=== PATIENT | male | born 1980 | race Caucasian/White ===

== ENCOUNTER 2022-03-18 18:44 | Emergency (ER) | payer OTHER ==
[~2022-03-18] VITALS: Ht 172.7 cm; Wt 74.8 kg
[2022-03-18 18:55] VITALS: BP 128/82
[2022-03-18] MEDS ORDERED: NACL 0.9% 1,000 ML IV ONE (19:15)
[2022-03-18] MEDS ORDERED: MORPHINE SULFATE 4 MG/ML SYR IVP ONE (19:15)
--- NOTE | 2022-03-18 19:19 | NUR ---
pt in room 2, already seen by , x r being done, report to shift foreman nurse, GEOFFREY Lepe
--- NOTE | 2022-03-18 19:20 | NUR ---
report to night worker nurse, GEOFFREY Lepe
[2022-03-18 19:34] LABS: BASOPHILS # (AUTO) 0.1 K/uL (0.00-0.22); BASOPHILS % (AUTO) 0.5 % (0.0-2.0); EOSINOPHILS # (AUTO) 0.1 K/uL (0-0.4); EOSINOPHILS % (AUTO) 0.5 % (0.0-4.0); HEMATOCRIT 43.5 % (36-52); HEMOGLOBIN 15.1 g/dL (12.0-18.0); LYMPHOCYTES % (AUTO) 11.2 % (20.5-51.1); MEAN CORPUSCULAR HEMOGLOBIN 32 pg (27-31); MEAN CORPUSCULAR HGB CONC 35 g/dL (33-37); MEAN CORPUSCULAR VOLUME 90.9 fL (80-94); MONOCYTES # (AUTO) 0.8 K/uL (0.8-1.0); MONOCYTES % (AUTO) 4.2 % (1.7-9.3); NEUTROPHILS # (AUTO) 15.1 K/uL (1.8-7.7); NEUTROPHILS % (AUTO) 83.6 % (42.2-75.2); PLATELET COUNT (AUTO) 400 K/uL (140-450); RED BLOOD CELL COUNT(AUTO) 4.79 MIL/uL (4.20-6.10); RED CELL DISTRIBUTION WIDTH 12.8 % (11.6-13.7)
[2022-03-18 19:53] LABS: ALBUMIN 3.7 g/dL (3.4-5.0); ASPARTATE AMINOTRANSFERASE 21 U/L (15-37); CARBON DIOXIDE 24.6 mmol/L (21-32); CHLORIDE 105 mmol/L (98-107); CREATININE 1.1 mg/dL (0.6-1.3); GFR ARICAN-AMERICAN 95 mL/min (>90); GLUCOSE 110 mg/dL (74-106); POTASSIUM 3.6 mmol/L (3.5-5.1); SODIUM SERUM 140 mmol/L (136-145); TOTAL BILIRUBIN 0.3 mg/dL (0.0-1.0); UREA NITROGEN, BLOOD 16 mg/dL (7-18)
[2022-03-18] MEDS ORDERED: BACTO TP (21:53)
[2022-03-18] MEDS ORDERED: IBUP-2213 PO (21:53)
[2022-03-18 22:16] VITALS: BP 125/75
--- NOTE | 2022-03-18 22:21 | NUR ---
dPatient discharged with v/s stable. Written and verbal after care instructions given and explained. Patient verbalized understanding. Ambulatory with steady gait. All questions addressed prior to discharge. Advised to follow up with PMD.
== END 2022-03-18 22:21 | disposition home or self-care (01) ==
LOC: MED 18:44
DX: S43.102A Unspecified dislocation of left acromioclavicular joint, initial encounter (principal); R07.89 Other chest pain; V29.888A Rider (driver) (passenger) of other motorcycle injured in other specified transport accidents, initial encounter; Y93.89 Activity, other specified; Y92.89 Other specified places as the place of occurrence of the external cause; Y99.8 Other external cause status
CPT/HCPCS: 36415; 71045; 73030; 73610; 74174; 80053; 84484; 85025; 90471; 90715; 93005; 96361; 96374; 99285; J2270; J7030; Q0092; Q9967